=== PATIENT | female | born 1995 | race Caucasian/White ===

== ENCOUNTER 2017-10-06 09:16 | Emergency (ER) | payer OTHER ==
[~2017-10-06] VITALS: Ht 157.5 cm; Wt 63.5 kg
[~2017-10-06 09:16] MED LIST: CIPRO500 M1 PO; FLOMAX(MONOGRA0.4 MG PO; FLOMAX0.4 M1 PO; IBUPROFEN600 M1 PO; IBUPROFEN800 M1 PO; KEFLEX500 M1 PO; MOTRIN800 MG PO; OXYCODONE-ACET1 EACH PO; PERCOCET 5-3251 EACH PO; TRAMADOL HCL50 M1 PO; VICODIN5-300 PO; ZOFRAN ODT4 M1 PO; ZOFRAN ODT4 M1 SL; ZOFRAN ODT4 MG PO; ZOFRAN4 M2 PO
[2017-10-06 10:03] LABS: ABSOLUTE BASOPHIL COUNT 0 /CUMM (0.0-0.2); ABSOLUTE EOSINOPHIL COUNT 0.1 /CUMM (0.0-0.7); ABSOLUTE GRANULOCYTE CT 7.8 /CUMM (1.4-6.5); ABSOLUTE LYMPH COUNT 1.4 /CUMM (1.2-3.4); ABSOLUTE MONOCYTE COUNT 0.8 /CUMM (0.10-0.60); BASOPHIL % 0.2 % (0.0-2.0); EOSINOPHIL % 0.6 % (0-5); GRANULOCYTE % 77.4 % (42.2-75.2); HEMATOCRIT 38.6 % (37-47); MEAN CORPUSCULAR HGB 30.4 PG (27.0-31.0); MEAN CORPUSCULAR VOLUME 86.9 FL (81.0-99.0); MEAN PLATELET VOLUME 8.1 FL (7.4-10.4); PLATELET COUNT 318 /CUMM (130-400); RBC DISTRIBUTION WIDTH 12.9 % (11.5-14.5); RED BLOOD CELL CT 4.45 /CUMM (4.20-5.40); WHITE BLOOD CELL COUNT 10.1 /CUMM (4.8-10.8)
--- NOTE | 2017-10-06 10:50 | ED SYNCOPE COMPLAINT ---
History of Present Illness General Chief Complaint: Dizziness Stated Complaint: BIBA FOR DIZZINESS Source: patient Exam Limitations: no limitations Vital Signs & Intake/Output Vital Signs & Intake/Output Vital Signs Date Time Temp Pulse Resp B/P B/P Pulse O2 O2 Flow FiO2 Mean Ox Delivery Rate 10/06 1327 78 18 100/60 99 Room Air 10/06 1325 78 100/60 10/06 1211 97.6 101 18 112/64 98 Room Air 10/06 0917 98.4 97 16 102/71 96 Room Air Allergies Coded Allergies: No Known Allergies (02/09/17) Reconcile Medications Metoprolol Succinate 25 MG TAB 1 TAB PO DAILY ARRYTHMIA (Reported) Triage Note: 22 Y/O FEMALE BIBA (TO TRIAGE) C/O SYNCOPE THIS AM. PT A/O X 4, SPEAKING CLEARLY WITH NO DISTRESS OR DEFICITS. PT STATES SHE WAS MAKING BREAKFAST AND BEGAN TO FEEL "DIZZY", STATES "I SAT ON THE COUCH AND CALLED 911 AND THEN PASSED OUT". PT STATES "THE WHOLE THING LASTED MAYBE 4 MINUTES". PT STATES SHE HAS A "HEAD COLD" AND TOOK NYQUIL LAST NIGHT; FIRST TIME SHE HAS TAKEN MED WHILE BEING ON METOPROLOL (HX SVT). STATES AT PRESENT SHE FEELS "A LITTLE DIZZY". PRE HOSPITAL IV IN PLACE. PREHOSPITAL FINGERSTICK 133 Triage Nurses Notes Reviewed? yes Timing: single episode today Precipitating Factors: lightheadedness : No Patient currently breastfeeds: No HPI: 22-year-old female comes into the emergency room for further evaluation of syncopal episode that occurred at home today. Patient reports that she was cooking breakfast. She started to feel profoundly lightheaded like she was going to pass out. She sat on the edge of the chair and then fell forward onto the couch. She reports that she was only out for a few seconds. She reports she has a history of a cardiac arrhythmia and is on the metoprolol. She does not know what the arrhythmia is. She denied any preceding chest pain shortness of breath or palpitations. She denies any other symptoms currently. She reports that her symptoms are better but she does still have some mild lightheadedness. She comes in for further evaluation. She denies any alcohol or drug use. (Mario Alberto LEA,Surjit) Past History Travel History Traveled to [place] past 21 day No Medical History Any Pertinent Medical History? see below for history Neurological: NONE EENT: NONE Cardiovascular: SVT Respiratory: NONE Gastrointestinal: NONE Hepatic: NONE Renal: nephrolithiasis Musculoskeletal: NONE Psychiatric: NONE Endocrine: NONE Blood Disorders: NONE Cancer(s): NONE PRODUCTION SORTER/Reproductive: NONE Surgical History Surgical History: N Psychosocial History What is your primary language Urdu Tobacco Use: Never used Family History Hx Contributory? No (Surjit Joyner) Review of Systems Review of Systems Constitutional: Reports: no symptoms. EENTM: Reports: no symptoms. Respiratory: Reports: no symptoms. Cardiovascular: Reports: see HPI. GI: Reports: no symptoms. Genitourinary: Reports: no symptoms. Musculoskeletal: Reports: no symptoms. Skin: Reports: no symptoms. Neurological/Psychological: Reports: no symptoms. All Other Systems: Reviewed and Negative (Surjit Joyner) Physical Exam Physical Exam General Appearance: well developed/nourished, no apparent distress, alert, awake Head: atraumatic, normal appearance Eyes: Bilateral: normal appearance, PERRL, EOMI. Ears, Nose, Throat: normal ENT inspection, hearing grossly normal, pharyngeal erythema (MILD, NO EXUDATES) Neck: normal inspection, supple, full range of motion, NO ANTERIOR CERVICAL LYMPHADENOPATHY Respiratory: normal breath sounds, no respiratory distress Cardiovascular: regular rate/rhythm Gastrointestinal: soft Back: normal inspection Extremities: normal inspection, normal range of motion, no edema Psychiatric: awake, alert, oriented x 3 Cranial Nerves: normal hearing, normal speech, PERRL Coordination/Gait: normal finger to nose, normal gait Motor/Sensory: no motor/sensory deficits Skin: intact, normal color Core Measures ACS in differential dx? No CVA/TIA Diagnosis: No Sepsis Present: No Sepsis Focused Exam Completed? No (Surjit Joyner) Progress Differential Diagnosis: AMI, aortic dissection, aortic valve, drug induced syncope, orthostatic syncope, other valvular disease, pericardial tamponade, pulmonary embolus, seizure, sick sinus syndrome, subarachnoid hem., TIA/CVA, vasodepressor syncope, ventricular tach/fib Plan of Care: Orders Procedure Date/time Status Add-on Test (ER Only) 10/06 1251 Active Add-on Test (ER Only) 10/06 1056 Active MISTAKE 10/06 1050 Active Telemetry/Psychiatric Rn 10/06 1050 Active EKG 10/06 1050 Active THYROID STIMULATING HORMONE 10/07 951 Complete TROPONIN LEVEL 10/07 951 Complete D-DIMER 10/07 951 Complete URINE 10/06 942 Complete URINALYSIS 10/06 942 Complete COMPREHENSIVE METABOLIC PANEL 10/06 941 Complete CBC WITHOUT DIFFERENTIAL 10/06 941 Complete Laboratory Tests 10/06/17 1052: Urine Color YEL, Urine Clarity HAZY H, Urine pH 6.5, Ur Specific [place] 1.025, Urine Protein 30 H, Urine Ketones TRACE H, Urine Nitrite NEG, Urine Bilirubin NEG@ICTO, Urine Urobilinogen 0.2, Ur Leukocyte Esterase NEG, Ur Microscopic SEDIMENT EXAMINED, Urine RBC FEW H, Urine WBC RARE, Ur Epithelial Cells MANY H , Urine Bacteria FEW H, Urine Hemoglobin TRACE-LYSED, Urine Glucose NEG, Urine Test NEGATIVE 10/06/17 1050: Troponin I Cancelled 10/06/17 0952: Anion Gap 14, Estimated GFR > 60, BUN/Creatinine Ratio 12.9, Glucose 144 H, Calcium 9.7, Total Bilirubin 0.6, AST 17, ALT 21, Alkaline Phosphatase 73, Troponin I < 0.01, Total Protein 7.9, Albumin 4.5, Globulin 3.4, Albumin/ Globulin Ratio 1.3, TSH 2.280, D-Dimer High Sensitivty < 200, CBC w Diff NO MAN DIFF REQ, RBC 4.45, MCV 86.9, MCH 30.4, MCHC 35.0, RDW 12.9, MPV 8.1, Gran % 77.4 H, Lymphocytes % 13.7 L, Monocytes % 8.1, Eosinophils % 0.6, Basophils % 0.2, Absolute Granulocytes 7.8 H, Absolute Lymphocytes 1.4, Absolute Monocytes 0.8 H, Absolute Eosinophils 0.1, Absolute Basophils 0 Diagnostic Imaging: Viewed by Me: Radiology Read. Discussed w/RAD: Radiology Read. Radiology Impression: PATIENT: DEJUAN LARSEN PRESENT AGE: 22 PATIENT ACCOUNT NO: [id number] : 95 LOCATION: [facility] ORDERING PHYSICIAN: Surjit LEA SERVICE DATE: 10/06/17 EXAM TYPE : RAD - XRY-CHEST XRAY, TWO VIEWS EXAMINATION: XR CHEST CLINICAL INFORMATION: Syncope. COMPARISON: None TECHNIQUE: 2 views of the chest were obtained. FINDINGS: The lungs are well-inflated and clear. Trachea is midline in position. No evidence of interstitial disease, focal consolidation, mass, pneumothorax or pleural effusion. The cardiomediastinal silhouette and pulmonary suhail have normal size and contour. The visualized osseous structures are unremarkable. The examined upper abdomen is unremarkable. IMPRESSION: No acute cardiopulmonary findings. DICTATED BY: Johnathan Gillis MD DATE/TIME DICTATED:10/06/171136 BRIM BUSTER:SHEA DATE/TIME TRANSCRIBED:10/06/171136 CONFIDENTIAL, DO NOT COPY WITHOUT APPROPRIATE AUTHORIZATION. <Electronically signed in Other Vendor System> SIGNED BY: Johnathan Gillis MD 10/06/17 1142 Initial ED EKG: normal sinus rhythm, rate (90) (Surjit Joyner) Departure Departure Disposition: HOME OR SELF CARE Condition: Stable Clinical Impression Primary Impression: Syncope Referrals: Yelitza Tran MD (PCP/Family) Additional Instructions: Follow-up with your primary care doctor. Return if any concerns worsening symptoms. Please go over all results of today's visit with your primary care doctor. Contact your primary care doctor to let them know you were here in the emergency room. There may be nonspecific findings which may not be related to your visit today here in the emergency room but may require further evaluation and chronic monitoring by your primary care doctor. If you had a laceration today the chance of foreign body always remains. You should follow-up with your primary care doctor for recheck in 3-5 days for a wound check. If you had an x-ray done there is a chance that a fracture could have been missed on initial read and you should follow-up with your primary care doctor for repeat x-rays if symptoms persist. If your blood pressure was elevated here in the emergency room please have rechecked by [facility] primary care doctor within the next 48. If you were prescribed a narcotic here in the emergency room or any type of controlled substances you're not allowed to drive while taking this medication or operate any type of heavy machinery. Narcotics can make you feel lightheaded dizziness nausea and can cause constipation. You may need to bean picker machine operator a stool softener. Thank you for choosing [facility] emergency room. Please return to the emergency room immediately if you have any other concerns worsening of symptoms. Departure Forms: Customer Survey General Discharge Information Comments 10/06/2017 1:49:00 PM Patient clinically looks well. Patient is in no apparent distress. Patient is nontoxic-appearing. Patient is asymptomatic. No recurrent symptoms here. Not orthostatic. EKG within normal limits. Patient has not had any chest pain or shortness of breath. Negative d-dimer. Patient needs follow-up with PCP. Return if any other concerns worsening symptoms. Understands and agrees with plan of care. (Mario Alberto LEA,Surjit) PA/SENIOR LIBRARIAN Co-Sign Statement Statement: ED Attending supervision documentation- x I saw and evaluated the patient. I have also reviewed all the pertinent lab results and diagnostic results. I agree with the findings and the plan of care as documented in the PA's/SENIOR LIBRARIAN's documentation. [] I have reviewed the ED Record and agree with the PA's/SENIOR LIBRARIAN's documentation. [] Additions or exceptions (if any) to the PAs/SENIOR LIBRARIAN's note and plan are summarized below: [] (Papo ALEJANDRA,Ozzie)
--- NOTE | 2017-10-06 11:42 | RADIOLOGY REPORT ---
EXAMINATION: XR CHEST CLINICAL INFORMATION: Syncope. COMPARISON: None TECHNIQUE: 2 views of the chest were obtained. FINDINGS: The lungs are well-inflated and clear. Trachea is midline in position. No evidence of interstitial disease, focal consolidation, mass, pneumothorax or pleural effusion. The cardiomediastinal silhouette and pulmonary suhail have normal size and contour. The visualized osseous structures are unremarkable. The examined upper abdomen is unremarkable. IMPRESSION: No acute cardiopulmonary findings.
[2017-10-06] MEDS ORDERED: METOPROLOL SUCC25 M1 PO (11:51)
[2017-10-06 13:27] VITALS: BP 100/60
== END 2017-10-06 13:41 ==
LOC: ERH 09:16
PROVIDERS: Emergency Medicine
DX: R55 Syncope and collapse (principal)
CPT/HCPCS: 71046; 81001; 81025; 93005; 93010

== ENCOUNTER 2018-01-31 17:35 | Emergency (ER) | payer OTHER ==
[~2018-01-31] VITALS: Ht 157.5 cm; Wt 63.5 kg
[~2018-01-31 17:35] MED LIST changes: +METOPROLOL SUCC25 M1 PO
--- NOTE | 2018-01-31 18:14 | ED GENERAL ADULT ---
History of Present Illness General Chief Complaint: Female Urogenital Problems Stated Complaint: ? KIDNEY STONE Source: patient Exam Limitations: no limitations Vital Signs & Intake/Output Vital Signs & Intake/Output Vital Signs Date Time Temp Pulse Resp B/P B/P Pulse O2 O2 Flow FiO2 Mean Ox Delivery Rate 01/316 81 18 124/75 99 Room Air 01/314 Room Air 02/01 1924 65 18 109/60 99 Room Air 01/31 1749 98.1 90 15 124/80 98 Room Air Room Air Allergies Coded Allergies: No Known Allergies (01/31/18) Reconcile Medications Ibuprofen 800 MG TABLET 1 TAB PO TID PRN pain Ondansetron (Zofran Odt) 4 MG TAB.RAPDIS 1 TAB SL TID PRN nausea Oxycodone HCl/Acetaminophen (Percocet 5-325 MG Tablet) 5 MG-325 MG TABLET 1 TAB PO Q4-6 PRN PRN pain Tamsulosin HCl (Flomax) 0.4 MG CAP.ER.24H 1 CAP PO DAILY renal stone Triage Note: PT TO ED FOR C/C OF ?KIDNEY STONES. R FLANK PAIN WITH NAUSEA AND 2 EPISODES OF VOMITING SINCE THIS MORNING. HX OF KIDNEY STONES AND REPORTS IT FEELS THE SAME. Triage Nurses Notes Reviewed? yes Onset: Gradual Duration: hour(s): Timing: constant : No Patient currently breastfeeds: No HPI: 22-year-old female with a history of renal stones and SVT presenting with right flank pain since this morning. Patient reports gradual onset of pain that feels similar to her prior kidney stones. She tried 800 mg of ibuprofen as this usually helps to relieve her kidney stone pain. States that her pain was initially resolved this morning with ibuprofen, but then has come back and is now unresponsive to ibuprofen. She has had constant nausea with 2 episodes of vomiting. States that the pain feels similar to her prior kidney stones. Has had 4 total kidney stones 2 that have spontaneously passed and 2 that have required lithotripsy. Is not currently followed by a urologist, states she has not had kidney stones for several years. Denies fevers, dysuria, hematuria, urinary urgency/frequency, abdominal pain. (Henrietta LEA,Tri) Past History Travel History Traveled to [place] past 21 day No Medical History Any Pertinent Medical History? see below for history Neurological: NONE EENT: NONE Cardiovascular: SVT Respiratory: NONE Gastrointestinal: NONE Hepatic: NONE Renal: nephrolithiasis Musculoskeletal: NONE Psychiatric: NONE Endocrine: NONE Blood Disorders: NONE Cancer(s): NONE DATA MANAGEMENT ASSOCIATE/Reproductive: NONE Surgical History Surgical History: N Psychosocial History What is your primary language Togolese Tobacco Use: Never used ETOH Use: denies use Illicit Drug Use: denies illicit drug use Family History Hx Contributory? No (Tri Clayton) Review of Systems Review of Systems Constitutional: Reports: no symptoms. EENTM: Reports: no symptoms. Respiratory: Reports: no symptoms. Cardiovascular: Reports: no symptoms. GI: Reports: see HPI. Genitourinary: Reports: see HPI. Musculoskeletal: Reports: no symptoms. Skin: Reports: no symptoms. Neurological/Psychological: Reports: no symptoms. Hematologic/Endocrine: Reports: no symptoms. Immunologic/Allergic: Reports: no symptoms. All Other Systems: Reviewed and Negative (Tri Clayton) Physical Exam Physical Exam General Appearance: well developed/nourished, no apparent distress, alert, awake Comments: Gen.: Well-nourished, well-developed, no acute distress. Head: Normocephalic, atraumatic. Eyes: Normal inspection bilaterally Ears: Normal inspection bilaterally Nose: Normal inspection Neck: Normal inspection Lungs: clear to auscultation bilaterally, normnal breath sounds Heart: regular rate and rhythm Abdomen: soft and non-tender Back: No CVA tenderness Extremities: Normal inspection Neurologic: alert and oriented x3, steady gait Skin: warm and dry Psychiatric: Normal mood and affect, no apparent delusions or hallucinations, behavior appropriate Core Measures ACS in differential dx? No CVA/TIA Diagnosis: No Sepsis Present: No Sepsis Focused Exam Completed? No (Tri Clayton) Progress Differential Diagnoses I considered the following diagnoses in my evaluation of the patient: [ Ureterolithiasis versus nephrolithiasis versus hydronephrosis versus UTI versus pyelonephritis] Plan of Care: Orders Procedure Date/time Status Add-on Test (ER Only) 01/31 194 Active CULTURE,URINE 01/31 181 Active URINE 01/31 174 Complete URINALYSIS 01/31 174 Complete COMPREHENSIVE METABOLIC PANEL 01/31 174 Complete CBC WITHOUT DIFFERENTIAL 01/31 174 Complete Current Medications Sig/Mayur Start time Last Medication Dose Stop Time Status Admin Ketorolac 30 MG ONCE ONE 01/31 1800 CAN Tromethamine 01/31 1801 (Toradol) Laboratory Tests 01/31/181809: Anion Gap 10, Estimated GFR > 60, BUN/Creatinine Ratio 15.0, Glucose 100 H, Calcium 9.9, Total Bilirubin 0.3, AST 20, ALT 29, Alkaline Phosphatase 63, Total Protein 7.7, Albumin 4.7, Globulin 3.0, Albumin/Globulin Ratio 1.6, CBC w Diff NO MAN DIFF REQ, RBC 4.65, MCV 87.2, MCH 29.5, MCHC 33.8, RDW 12.3, MPV 8.9, Gran % 52.7, Lymphocytes % 38.7, Monocytes % 7.2, Eosinophils % 0.8, Basophils % 0.6, Absolute Granulocytes 4.0, Absolute Lymphocytes 2.9, Absolute Monocytes 0.5 , Absolute Eosinophils 0.1, Absolute Basophils 0, Urinalysis LIGHT H, Urine Color YEL, Urine Clarity CLDY H, Urine pH 8.5 H, Ur Specific [place] 1.015, Urine Protein TRACE H, Urine Ketones NEG, Urine Nitrite NEG, Urine Bilirubin NEG, Urine Urobilinogen 0.2, Ur Leukocyte Esterase NEG, Ur Microscopic SEDIMENT EXAMINED, Urine RBC 15-25 H, Urine WBC 1-3 H, Ur Epithelial Cells PACKD H, Urine Bacteria MANY H, Urine Mucus MANY H, Urine Hemoglobin MOD H, Urine Glucose NEG, Urine Test NEGATIVE Microbiology 01/31 1810 URINE ROUT: Urine Culture - RECD UA is positive for blood, consistent with kidney stone diagnosis. Urine was a dirty catch and patient is not having any urinary symptoms, therefore will not treat for infection at this time, urine culture sent. Labs are unremarkable including normal WBC and normal kidney function. Ultrasound IMPRESSION: There is no hydronephrosis of either kidney. There are 4 nonobstructive stones in the right kidney.. Ureteral jets are not present in the bladder bilaterally. Given the absence of hydronephrosis patient likely has a smaller kidney stone that will hopefully spontaneously passed with the help of Flomax. Patient is well-appearing, and requesting to be discharged home. She will be discharged home on Flomax, Zofran, ibuprofen, and Percocet. She was given contact information to follow-up with urology. Given strict return precautions. Initial ED EKG: none (Tri Clayton) Departure Departure Disposition: HOME OR SELF CARE Condition: Stable Clinical Impression Primary Impression: Right flank pain Referrals: Chelsea ALEJANDRA,Yelitza (PCP/Family) Mikey Rodriguez MD Additional Instructions: Take Flomax to help pass your renal stone. This medication can make you lightheaded, if you develop any lightheadedness please stop taking the medication and return to the emergency department. Use Zofran as needed for nausea. Use ibuprofen as needed for pain. Use Percocet as needed for breakthrough pain. Follow-up with Dr. Rodriguez from neurology for further evaluation. Return to the emergency department for any new or worsening symptoms. Departure Forms: Customer Survey General Discharge Information Prescriptions: Current Visit Scripts Tamsulosin HCl (Flomax) 1 CAP PO DAILY #14 CAP Ondansetron (Zofran Odt) 1 TAB SL TID PRN nausea #20 TAB Ibuprofen 1 TAB PO TID PRN pain #60 TAB Oxycodone HCl/Acetaminophen (Percocet 5-325 MG Tablet) 1 TAB PO Q4-6 PRN PRN pain #12 TAB (Tri Clayton) PA/CREDIT HISTORIAN Co-Sign Statement Statement: ED Attending supervision documentation- [] I saw and evaluated the patient. I have also reviewed all the pertinent lab results and diagnostic results. I agree with the findings and the plan of care as documented in the PA's/CREDIT HISTORIAN's documentation. [x] I have reviewed the ED Record and agree with the PA's/CREDIT HISTORIAN's documentation. [] Additions or exceptions (if any) to the PAs/CREDIT HISTORIAN's note and plan are summarized below: [] (Kaitlyn ALEJANDRA, Sandra) Critical Care Note Critical Care Note Critical Care Time: non-applicable (Tri Clayton)
[2018-01-31 19:00] LABS: ABSOLUTE BASOPHIL COUNT 0 /CUMM (0.0-0.2); ABSOLUTE EOSINOPHIL COUNT 0.1 /CUMM (0.0-0.7); ABSOLUTE LYMPH COUNT 2.9 /CUMM (1.2-3.4); ABSOLUTE MONOCYTE COUNT 0.5 /CUMM (0.10-0.60); BASOPHIL % 0.6 % (0.0-2.0); EOSINOPHIL % 0.8 % (0-5); GRANULOCYTE % 52.7 % (42.2-75.2); HEMATOCRIT 40.5 % (37-47); MEAN CORPUSCULAR HGB 29.5 PG (27.0-31.0); MEAN CORPUSCULAR HGB CONC 33.8 G/DL (33.0-37.0); MEAN CORPUSCULAR VOLUME 87.2 FL (81.0-99.0); MEAN PLATELET VOLUME 8.9 FL (7.4-10.4); PLATELET COUNT 308 /CUMM (130-400); RBC DISTRIBUTION WIDTH 12.3 % (11.5-14.5); RED BLOOD CELL CT 4.65 /CUMM (4.20-5.40); WHITE BLOOD CELL COUNT 7.6 /CUMM (4.8-10.8)
--- NOTE | 2018-01-31 20:09 | ULTRASOUND REPORT ---
EXAMINATION: US RETROPERITONEAL COMPLETE (RENAL) CLINICAL INFORMATION: Flank pain.. COMPARISON: CT scan abdomen pelvis 05/20/2017. Abdominal ultrasound 03/24/2017. Renal ultrasound 03/14/2016 TECHNIQUE: Real-time imaging of the kidneys and bladder. Color Doppler exam used. FINDINGS: RIGHT KIDNEY: 9.9 x 4.9 x 4.4 cm (SAG x AP x TRV). The kidney is normal in size, contour, and echogenicity. Renal cortical thickness is normal. There is no hydronephrosis. There are renal stones. 4 stones are present. 1. In the upper pole there is a 4 mm stone. 2. In the midpole there is a 4 mm stone. 3. There is a 3 mm stone in the midpole. 4. In the lower pole there is a 4 mm stone. LEFT KIDNEY: 9.9 x 5.4 x 4.1 cm (SAG x AP x TRV). The kidney is normal in size, contour, and echogenicity. Renal cortical thickness is normal. There is no hydronephrosis. There are no renal calculi. BLADDER: Bladder measures 5.9 x 5.2 x 2.6 cm. Volume 41 mL. Postvoid bladder volume is 1 mL. Ureteral jets are not demonstrated. IMPRESSION: There is no hydronephrosis of either kidney. There are 4 nonobstructive stones in the right kidney.. Ureteral jets are not present in the bladder bilaterally.
[2018-01-31] MEDS ORDERED: FLOMAX0.4 M1 PO (20:42)
[2018-01-31] MEDS ORDERED: IBUPROFEN800 M1 PO (20:42)
[2018-01-31] MEDS ORDERED: ZOFRAN ODT4 M1 SL (20:42)
[2018-01-31] MEDS ORDERED: PERCOCET 5-3251 EACH PO (20:42)
[2018-01-31 20:46] VITALS: BP 124/75
== END 2018-01-31 20:43 ==
LOC: ERH 17:35
PROVIDERS: Physician Assistant Medical
DX: R10.31 Right lower quadrant pain (principal)
CPT/HCPCS: 76775; 81001; 81025; 87086; 96374; 96375; J1885; J3101

== ENCOUNTER → 2018-02-06 | Day surgery (SDC) | payer OTHER ==
[~2018-02-06] VITALS: Ht 157.5 cm; Wt 63.5 kg
--- NOTE | 2018-02-06 19:07 | Operative Report ---
Operative/Inv Procedure Report Surgery Date: 02/06/18 Name of Procedure: right renal eswl; fluoroscopy Pre-Operative Diagnosis: right renal stone with colic Post-Operative Diagnosis: same Estimated Blood Loss: none Surgeon/Custodial Officer: Mikey Rodriguez MD Anesthesia: moderate sedation Complications: none Operative/Procedure Note Note: The patient was taken to the operating room placed on the OR table in supine position. Timeout was performed, with the patient awake, in order to confirm correct procedure, laterality, anesthesia, and other pertinent perioperative information. After adequate anesthesia and antibiotics, the patient was then positioned over the ESWL table cutout overlying the treatment dome. Fluoroscopy, using AP and oblique views, as well as renal ultrasound, or performed in order to locate the stone. The position of the RIGHT renal stone was optimized, and positioned in the middle of the ESWL crosshairs. The stone was measured to be approximately 5 mm in size. ESWL was initiated at low power, and after 200 shockwaves delivered , noting the patient's tolerance to the shockwaves, the power was increased to maximum. At the end of 2500 shockwaves, fluoroscopy confirms the change in consistency of the stone, indicating shattering of the stone. The patient was then frog legged, draped and prepped in the usual surgical fashion. 22 [place] cystoscope sheath with a 30 angle lens was inserted into the bladder without difficulty. The left stent was visualized, and grasped with alligator forceps. The cystoscope along with entire stent was removed without difficulty with fluoroscopic visualization. All sponge needle and instrument count were correct at the end of the case. The patient tolerated the procedures well, and was taken to the recovery room in satisfactory condition. The patient is discharged home with pain medication, and follow-up instructions with in 2-3 weeks' time. Discharge Disposition: Same Day Admissions CC: Mikey Rodriguez MD
== END ==
LOC: STS 07:00
DX: N20.0 Calculus of kidney (principal)
CPT/HCPCS: 81025